=== PATIENT | male | born 1975 | race Two or more races ===

== ENCOUNTER 2020-08-26 20:05 | Emergency (ER) | payer BC, OTHER ==
[~2020-08-26] VITALS: Ht 182.9 cm; Wt 88.5 kg
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
--- NOTE | 2020-08-26 20:37 | NUR ---
XR AT BEDSIDE
[2020-08-26] MEDS ORDERED: HYDROCODONE/APAP 5/325MG TABLET ONE (21:59)
[2020-08-26] MEDS ORDERED: HYDROCODONE/APAP 5/325MG TABLET PO ONE (22:00)
[2020-08-26 22:03] VITALS: BP 125/72
[2020-08-26] MEDS ORDERED: NAPR-1009 PO (22:04)
[2020-08-26] MEDS ORDERED: HYDR-4209 PO (22:04)
--- NOTE | 2020-08-26 22:13 | NUR ---
Patient discharged to home in stable condition. Written and verbal after care instructions given. Patient verbalizes understanding of instruction. ambulatory with a steady gait noted. pt [id number] no acute distress noted, resp even and unlabored. advice pt not to drive or operate any machinery due to pt was given narcotic medicine. pt verbalize understanding.
== END 2020-08-26 22:15 | disposition home or self-care (01) ==
LOC: ER 20:07
DX: S62.627A Displaced fracture of middle phalanx of left little finger, initial encounter for closed fracture (principal); S20.212A Contusion of left front wall of thorax, initial encounter; S30.811A Abrasion of abdominal wall, initial encounter; S40.212A Abrasion of left shoulder, initial encounter; S50.811A Abrasion of right forearm, initial encounter; Z88.0 Allergy status to penicillin; V49.49XA Driver injured in collision with other motor vehicles in traffic accident, initial encounter; Y93.89 Activity, other specified; Y92.413 State road as the place of occurrence of the external cause; Y99.8 Other external cause status
CPT/HCPCS: 71100-TC; 73140-TC